=== PATIENT | female | born 2000 | race Caucasian/White ===

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

== ENCOUNTER 2018-06-02 17:29 | Emergency (ER) | payer OTHER ==
[2018-06-02 17:29] VITALS: BMI 21.9
[2018-06-02 18:04] VITALS: RESP 16
[2018-06-02 20:06] LABS: BASO % 0.3 % (0.0-2.0); EOS # 0.1 K/uL (0.0-0.7); EOS % 0.7 % (0.0-4.0); HEMOGLOBIN 12.8 g/dL (12.0-16.0); LYMPH # 2.3 K/uL (1.0-4.3); LYMPH % 19.6 % (20.0-40.0); MEAN CELL VOLUME 88.8 fl (81.0-99.0); MEAN CORPUSCULAR HEMOGLOBIN 29.8 pg (27.0-31.0); MEAN CORPUSCULAR HGB CONC 33.6 g/dL (33.0-37.0); MEAN PLATELET VOLUME 9.3 fl (7.2-11.7); MONO # 0.7 K/uL (0.0-0.8); MONO % 5.6 % (0.0-10.0); NEUT # 8.7 K/uL (1.8-7.0); NEUT % 73.8 % (50.0-75.0); NRBC % 0.1 % (0.0-0.0); RBC 4.31 Mil/uL (3.80-5.20); RED CELL DISTRIBUTION WIDTH 12.6 % (11.5-14.5); WHITE BLOOD COUNT 11.8 K/uL (4.8-10.8)
[2018-06-02 20:09] LABS: ALB/GLOB RATIO 1.3 (1.0-2.1); ALBUMIN 4.2 g/dL (3.5-5.0); ALT/SGPT 16 U/L (9-52); AST/SGOT 21 U/L (14-36); BLOOD UREA NITROGEN 10 mg/dl (7-17); CALCIUM 9.3 mg/dL (8.4-10.2); GFR NON-AFRICAN AMERICAN > 60; LIPASE 35 U/L (23-300)
[2018-06-02 20:47] LABS: SQUAMOUS EPITHIAL < 1 /hpf (0-5); URINE BACTERIA RARE (<OCC); URINE BILIRUBIN NEGATIVE (NEGATIVE); URINE BLOOD NEGATIVE (NEGATIVE); URINE CLARITY CLEAR (Clear); URINE COLOR YELLOW (YELLOW); URINE GLUCOSE (UA) NEG (Normal); URINE LEUKOCYTE ESTERASE NEG Leu/uL (Negative); URINE PROTEIN NEGATIVE (NEGATIVE); URINE UROBILINOGEN 0.2-1.0 mg/dL (0.2-1.0)
--- NOTE | 2018-06-02 21:03 | ED PDOC ---
HPI: Abdomen Time Seen by Provider: 06/02/18 17:47 Chief Complaint (Nursing): Abdominal Pain Chief Complaint (Provider): Abdominal Pain History Per: Patient History/Exam Limitations: no limitations Onset/Duration Of Symptoms: Days Current Symptoms Are (Timing): Still Present Location Of Pain/Discomfort: Diffuse Associated Symptoms: Diarrhea. denies: Fever, Nausea, Vomiting Additional Complaint(s): Alba Singleton is a 18 year old female with a past medical history of osteochondroma of left knee who is presenting to the Ed with complaints of abdominal pain onset yesterday and left knee pain onset 2 weeks ago. Patient states that pain to left knee worsens with movement but is able to ambulate. She also reports 2 episodes of loose diarrhea with possible blood. Patient denies any fevers, nausea, vomiting, or associated urinary symptoms. PMD: Elbert Montes Past Medical History Reviewed: Historical Data, Nursing Documentation, Vital Signs Vital Signs: Last Vital Signs Temp 98 F 06/02/18 22:30 Pulse 71 06/02/18 22:30 Resp 16 06/02/18 22:30 BP 107/74 06/02/18 22:30 Pulse Ox 99 06/02/18 22:30 - Medical History PMH: Asthma (Exercise induced) Denies: Chronic Kidney Disease Other PMH: osteochondroma of left knee - Surgical History Surgical History: No Surg Hx - Family History Family History: States: Unknown Family Hx - Social History Current smoker - smoking cessation education provided: No Alcohol: None Drugs: Denies - Home Medications Home Medications: Ambulatory Orders Medication Instructions Recorded Amoxicillin 800 mg PO BID #200 ml 07/28/15 Benzonatate [Tessalon Perle] 100 mg PO Q8 PRN #30 capsule 02/08/17 Naproxen [Naprosyn] 500 mg PO BID PRN #30 tab 02/08/17 Nitrofurantoin Macrocrystals 100 mg PO BID #14 cap 09/04/17 [Macrobid] Phenazopyridine HCl [Pyridium] 100 mg PO TID #6 tab 09/04/17 Dicyclomine [Bentyl] 20 mg PO Q12 PRN #20 tab 06/02/18 - Allergies Allergies/Adverse Reactions: Allergies Allergy/AdvReac Type Severity Reaction Status Date / Time No Known Allergies Allergy Verified 06/02/18 18:01 Review of Systems ROS Statement: Except As Marked, All Systems Reviewed And Found Negative Constitutional: Negative for: Fever Gastrointestinal: Positive for: Abdominal Pain, Diarrhea. Negative for: Nausea , Vomiting Genitourinary Female: Negative for: Other (urinary symptoms) Musculoskeletal: Positive for: Leg Pain (left knee) Physical Exam - Reviewed Nursing Documentation Reviewed: Yes Vital Signs Reviewed: Yes - Physical Exam Appears: Positive for: Non-toxic, No Acute Distress Head Exam: Positive for: ATRAUMATIC, NORMAL INSPECTION, NORMOCEPHALIC Skin: Positive for: Normal Color, Warm, DRY Eye Exam: Positive for: EOMI, Normal appearance, PERRL ENT: Positive for: Normal ENT Inspection Neck: Positive for: Normal, Painless ROM Cardiovascular/Chest: Positive for: Regular Rate, Rhythm. Negative for: Murmur Respiratory: Positive for: Normal Breath Sounds. Negative for: Respiratory Distress Gastrointestinal/Abdominal: Positive for: Soft, Tenderness (mild diffuse tenderness, more pronounced in left lower quadrant). Negative for: Distended, Rebound Back: Positive for: Normal Inspection. Negative for: L CVA Tenderness, R CVA Tenderness Extremity: Positive for: Normal ROM, Other (left knee: tend super-patellar region, no warmth, no erythema, full ROM). Negative for: Pedal Edema, Deformity , Swelling Neurologic/Psych: Positive for: Alert, Oriented. Negative for: Motor/Sensory Deficits - Laboratory Results Result Diagrams: 06/02/18 19:50 06/02/18 19:50 - ECG O2 Sat by Pulse Oximetry: 100 (RA) Pulse Ox Interpretation: Normal Medical Decision Making Medical Decision Making: Time: 19:29 Impression: 18 year old female with abdominal pain and left knee pain Plan: --CMP --Lipase --ED Urine --ED Urine Dipstick --CBC --X-ray Left knee --Toradol 30 mg IVP --Urinalysis --Transvaginal Ultrasound Ultrasound: FINDINGS: Uterus/cervix: Unremarkable. Anteverted uterus. The Endometrium thickness measures 9 mm. Right ovary: Unremarkable. Follicles noted. Normal blood flow. Left ovary: Unremarkable. Follicles noted. Normal blood flow. Free fluid: No free fluid. IMPRESSION: Normal pelvic ultrasound. 22:15 Labs were reviewed with no clinically significant abnormalities. Upon provider evaluation, patient is stable for discharge. Patient will follow up with PMD and [facility]. Scribe Attestation: Documented by Carrol Vaughan, acting as a scribe for Porfirio White MD. Provider Scribe Attestation: All medical record entries made by the Scribe were at my direction and personally dictated by me. I have reviewed the chart and agree that the record accurately reflects my personal performance of the history, physical exam, medical decision making, and the department course for this patient. I have also personally directed, reviewed, and agree with the discharge instructions and disposition. Disposition - Clinical Impression Clinical Impression: Gastroenteritis, Knee pain - Patient ED Disposition Is Patient to be Admitted: No - Disposition Disposition: Routine/Home Disposition Time: 22:20 Condition: STABLE Prescriptions: Dicyclomine [Bentyl] 20 mg PO Q12 PRN #20 tab PRN Reason: abdominal pain/diarrhea Instructions: Diarrhea in Adolescents and Adults Forms: [employer] (Lithuanian)
[2018-06-02 22:35] VITALS: BP 107/74; PULSE 71; TEMP 98
[2018-06-02 22:38] VITALS: O2SAT 100
--- NOTE | 2018-06-03 11:14 | RAD ---
Date of service: 06/02/2018 PROCEDURE: Left Knee Radiographs. HISTORY: Pain. COMPARISON: None. FINDINGS: BONES: Normal. No fracture. JOINTS: Normal. No osteoarthritis. JOINT EFFUSION: Suspect trace joint effusion. OTHER FINDINGS: None. IMPRESSION: Suspect trace joint effusion.
--- NOTE | 2018-06-03 11:21 | US ---
Date of service: 06/02/2018 HISTORY: pelvic pain COMPARISON: None available. TECHNIQUE: Transvaginal pelvic ultrasound FINDINGS: UTERUS: Measures 5.7 x 3.8 x 2.8 cm. Anteverted. ENDOMETRIUM: Measures 9 mm in diameter. CERVIX: No cervical abnormality identified. RIGHT OVARY: Measures 4.0 x 3.6 x 2.6 cm. Follicles. Blood flow is demonstrated to the right ovary. LEFT OVARY: Measures 2.6 x 2.4 x 1.7 cm. Follicles. Blood flow is demonstrated to the left ovary. FREE FLUID: Small pelvic fluid. OTHER FINDINGS: None. IMPRESSION: Unremarkable pelvic ultrasound as above.
== END 2018-06-02 22:34 | disposition home or self-care (01) ==
LOC: H.ER 17:29
DX: M25.562 Pain in left knee (principal); K52.9 Noninfective gastroenteritis and colitis, unspecified
CPT/HCPCS: 73562; 76830; 80053; 81003; 81025; 83690; 85025; 96374; 99285; J1885